=== PATIENT | female | born 1990 | race African-American/Black ===

== ENCOUNTER 2024-04-09 06:22 | Day surgery (SDC) | payer MEDICARE, SELFPAY ==
[2024-04-09] VITALS (16 sets, daily range): BP systolic 111–150; BP diastolic 65–98; PULSE 66–101; RESP 16; TEMP 36.1–36.9; O2SAT 95–100; BMI 30.9
--- OUTSIDE RECORDS SUMMARY | 2024-04-09 06:26 | XMS_ITS | Encounter Summary ---
Author Organization [facility] Address [address] [place] [address]. 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 Last Pap smear by patient report last year Allergy List reviewed: Current Immunizations reviewed: Up to date Medication list reviewed with patient and was up to date. PCS please remember to complete SMOKING assessment. Vital Signs Recorded by yessenia on 21 Jun 2007 01:20 PM BP:112/73, LUE, Sitting, HR: 88 b/min, Temp: 98.0 F, Oral, Height: 61 in, Weight: 140 lb, BMI: 26.5 kg/m2. Allergies No Known Drug Allergy. Smoking Assessment Refusing treatment. No secondhand cigarette smoke exposure. Tobacco use. Education: intervention and counseling on cessation of tobacco use Current Meds Metronidazole 500 MG Tablet;TAKE 1 TABLET TWICE DAILY; Rx Metronidazole 500 MG Tablet;1 TABS PO bid; Rx. Active Problems Acute Gonorrhea (098.0) Control Method. HPI Ms. Iniguez is an 17 year old woman seen today for a follow up pap smear and because she thinks she has bacterial vaginosis. In September 2006 she had an abnormal pap smear, was positive for HPV and had a colposcopsy that demonstrated KATHLEEN. Ms. Iniguez is experiencing vaginal discomfort and a smell white discharge. She look her symptoms up online and they were consistent with bacterial vaginosis. She has had this in the past and it has been treated successfully with metronidazole. Ms. Iniguez is sexually active and has had multiple sexual partners. She uses condoms but is not currently using any control. She has tried oral contraceptives, the patch and depo- none of which worked for her. She is interested in what other control methods are available. Ms. Iniguez also smokes and drinks socially and uses marijuana. She has graduated from high school, is currently unemployed and lives at home with her parents. She is interested in going back to schoolfor nursing or to do hair. She has no children and reports no abusive relationships in her life or unsafe living environment. Physical Exam Vital signs reviewed and recorded above. In general this is a young female in no acute distress. CV: S1 and S2, no murmur. Lungs are clear to auscultation in all galeas. Abdomen is soft, nontender and nondistended. Examination of the external genitalia shows no lesions. Vaginal vault also without lesion or mass. Cervix appears normal. There is no cervical motion tenderness. There is no adnexal mass palpated. Dictated by Mikhail Paez M.D.; ; ; ; ln. A and P A/P: #1. Repeat pap based on abnormal pap one year prior with colposcopy. Results pending. #2. Based on clinical picture and discharge, suspected bacterial vaginosis. The patient will be treated with Metronidazole 500 mg p.o. b.i.d. x seven days. #3. control. The patient was educated as to the Nuva Ring and would like to give this a try. A prescription was given. Dictated by Mikhail Paez M.D.; ; ; ; sk. Attending Note I saw and evaluated the patient. Discussed with the resident and agree with the resident's findingsand plan. Supervising Physician: Dr. Dockery. Signature Signed By: Mikhail Paez M.D.,Resident; 07/24/2007 10:57 PM WEIGHT AND BALANCE CONTROL AGENT. Signed By: BRINDA REBOLLEDO M.D.; 07/30/2007 4:19 PM WEIGHT AND BALANCE CONTROL AGENT. documented in this encounter Plan of Treatment Not on file documented as of this encounter Visit Diagnoses Not on filedocumented in this encounter Care Teams Swatch Cutter Relationship Specialty Start Date End Date No Ref-Primary, Physician PCP - General 01/03/24 Nehemiah Lewis DPM [address] [place] [address] Assigned Surgical Provider 01/08/24 documented as of this encounter
--- OUTSIDE RECORDS SUMMARY | 2024-04-09 06:26 | XMS_ITS | Encounter Summary ---
Author Organization [facility] Address [facility] [place] [address] Care Team Providers Care Services Host Name Role Phone No Ref-Primary, Physician Primary Care Provider Reason for Referral * Consultation (Routine) - Pending Review Specialty Diagnoses / Procedures Referred By Hilario t Referred To Contact Diagnoses Marizolatarsia Nehemiah Lewis DPM [address] [facility] [address] [address] Phone: tel: fax: Referral ID Status Reason Start Date Expiration Date V isits Requested Visits Authorized [id number] Pending Review 01/03/2024 01/02/2025 1 1 Question Answer Consult Type: Foot/Ankle Type: Per Protocol Scheduling Instructions: [facility] will call you to coordinate your care as prescribed by your provider. A insurance claims representative will call you within 2 business days to help you schedule your appointment, or you may contact the Intelligence Applications Chair Maker at: . Comments Please be aware that coverage of these services is subject to the terms and limitations of your health insurance plan. Call member services at your health plan with any benefit or coverage questions. [facility] will call you to coordinate your care as prescribed by your provider. A insurance claims representative will call you within 2 business days to help you schedule your appointment, or you may contact the [employer] Applications Chair Maker at: . Reason for Visit * Reason Comments Consult Brachymetatarsia Consult Brachymetatarsia Encounter Details Date Type Department Care Team (Late st Contact Info) Description 01/03/2024 8:00 AM CDT Office Visit [facility] [address] [place] [phone] Nehemiah Lewis DPM [address] [place], [place] [id number] Brachymetatarsia (Primary Dx) Social History Tobacco Use Types Packs/Day Years Used Date Smoking Tobacco: Never Tobacco Cessation:Counseling Given: No Alcohol Use Standard Drinks/Week Comments No 0 (1 standard drink = 0.6 oz pur e alcohol) Adolescent Education Answer Date Record ed Getting School Help Needed Not on file 01/02 Comments Unknown Sex and Gender Information Value Date Recorded Sex Assigned at Not on file 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 Gender Identity Not on file Sexual Orientation Not on file documented as of this encounter Last Filed Vital Signs Vital Sign Reading Time Taken Comments Blood Pressure - - Pulse 67 01/03/2024 8:12 AM CDT Temperature - - Respiratory Rate - - Oxygen Saturation 98% 01/03/2024 8:12 AM CDT Inhaled Oxygen Concentration - - Weight 70.8 kg (156 lb) 01/03/2024 8:12 AM CDT Height 154.9 cm (5' 1) 01/03/2024 8:12 AM CDT Body Mass Index 29.48 01/03/2024 8:12 AM CDT documented in this encounter Patient Instructions * Patient Instructions* Jessica Falcon - 01/03/2024 8:00 AM CDT Please make an appointment with Dr. Greg Gaines MD Locations [facility] Appointment Info [phone] documented in this encounter Progress Notes * Nehemiah Lewis, LYLEGuille - 01/03/2024 8:00 AM CDT FOOT AND ANKLE SURGERY/PODIATRY CONSULT NOTE ASSESSMENT: Brachymetatarsia bilaterally TREATMENT: I informed the patient that her best treatment option would be callus distraction and attempt to gain some length of the third and fourth metatarsals of both feet. The patient has been referred to Dr. Gaines at [facility] orthopedics for further evaluation and treatment. HPI:Erinn Iniguez presented to the clinic today complaining of bilateral foot pain. The patient indicated that her pain is located on the bottom of both feet. She has congenital brachymetatarsia. She stated as result of her short metatarsals she has a loss of balance and it creates pain due to improper weight distribution. The pain is aggravated with prolonged weightbearing and ambulation. Shedenies any trauma to her feet. She has not had any redness or swelling. She would like to have her short metatarsals treated surgically in an attempt to alleviate her symptoms. She denies any other previous treatment other than orthotics. She stated the orthotics did not give her much relief. History reviewed. No pertinent past medical history. Social History Socioeconomic History Marital status: Single Spouse name: Not on file Number of children: Not on file Years of education: Not on file Highest education level: Not on file Occupational History Not on file Tobacco Use Smoking status: Never Smokeless tobacco: Not on file Substance and Sexual Activity Alcohol use: No Drug use: Yes Comment: Drug use: quit smoking marijuana when found out . Sexual activity: Yes Partners: Male control/protection: Condom Other Topics Concern Not on file Social History Narrative Not on file Social Determinants of Health Financial Resource Strain: Declined (11/13/2023) Received from [employer] Financial Resource Strain Financial Resource Strain: 99 Food Insecurity: Declined (11/13/2023) Received from [facility] Food Insecurity Food: 99 Transportation Needs: Declined (11/13/2023) Received from [employer] Transportation Needs Transportation: 99 Physical Activity: Declined (12/01/2021) Received from [employer] Physical Activity Physical Activity: 99 Stress: Declined (12/01/2021) Received from [facility] Stress Stress: 99 Social Connections: Socially Integrated (07/02/2023) Received from [facility] Social Connections Frequency of Communication with Friends and Family: 0 Interpersonal Safety: Not on file Housing Stability: Declined (11/13/2023) Received from [employer] Housing Stability Housin No Known Allergies Current Outpatient Medications: diphenhydrAMINE (BENADRYL) 50 mg/mL injection, [DIPHENHYDRAMINE (BENADRYL) 50 MG/ML INJECTION] Infuse 0.25 mL (12.5 mg total) into a venous catheter every 6 (six) hours as needed for itching or allergies (nausea/vomiting)., Disp: 10 mL, Rfl: 5 metoclopramide (REGLAN) 10 MG tablet, [METOCLOPRAMIDE (REGLAN) 10 MG TABLET] Take 1 tablet (10 mg total) by mouth 4 (four) times a day before meals and at bedtime., Disp: 30 tablet, Rfl: 1 ondansetron (ZOFRAN-ODT) 8 MG disintegrating tablet, [ONDANSETRON (ZOFRAN-ODT) 8 MG DISINTEGRATING TABLET] Take 8 mg by mouth every 8 (eight) hours as needed for nausea., Disp: , Rfl: pyridoxine (B-6) 25 MG tablet, [PYRIDOXINE (B-6) 25 MG TABLET] Take 1 tablet (25 mg total) by mouth3 (three) times a day as needed (nausea/vomiting)., Disp: 30 tablet, Rfl: 1 Family History Problem Relation Age of Onset No Known Problems Mother No Known Problems Father No Known Problems Brother No Known Problems Maternal Aunt No Known Problems Maternal Uncle Social History Socioeconomic History Marital status: Single Spouse name: Not on file Number of children: Not on file Years of education: Not on file Highest education level: Not on file Occupational History Not on file Tobacco Use Smoking status: Never Smokeless tobacco: Not on file Substance and Sexual Activity Alcohol use: No Drug use: Yes Comment: Drug use: quit smoking marijuana when found out . Sexual activity: Yes Partners: Male control/protection: Condom Other Topics Concern Not on file Social History Narrative Not on file Social Determinants of Health Financial Resource Strain: Declined (11/13/2023) Received from [employer] Financial Resource Strain Financial Resource Strain: 99 Food Insecurity: Declined (11/13/2023) Received from [facility] Food Insecurity Food: 99 Transportation Needs: Declined (11/13/2023) Received from [facility] Transportation Needs Transportation: 99 Physical Activity: Declined (12/01/2021) Received from [facility] Physical Activity Physical Activity: 99 Stress: Declined (12/01/2021) Received from [facility] Stress Stress: 99 Social Connections: Socially Integrated (07/02/2023) Received from [facility] Social Connections Frequency of Communication with Friends and Family: 0 Interpersonal Safety: Not on file Housing Stability: Declined (11/13/2023) Received from [employer] Housing Stability Housin Review of Systems - Patient denies fever, chills, rash, wound, stiffness, limping, numbness, weakness, heart burn, blood in stool, chest pain with activity, calf pain when walking, shortness of breath with activity, chronic cough, easy bleeding/bruising, swelling of ankles, excessive thirst, fatigue, depression, anxiety. Patient admits to bilateral foot pain. OBJECTIVE: Appearance: alert, well appearing, and in no distress. Pulse 67 Ht 1.549 m (5' 1) Wt 70.8 kg (156 lb) SpO2 98% BMI 29.48 kg/m?? Body mass index is 29.48 kg/m??. General appearance: Patient is alert and fully cooperative with history & exam. No sign of distress is noted during the visit. Psychiatric: Affect is pleasant & appropriate. Patient appears motivated to improve health. Respiratory: Breathing is regular & unlabored while sitting. HEENT: Hearing is intact to spoken word. Speech is clear. No gross evidence of visual impairment that would impact ambulation. Vascular: Dorsalis pedis and posterior tibial pulses are palpable. There is pedal hair growth bilaterally. CFT < 3 sec from anterior tibial surface to distal digits bilaterally. There is no appreciable edema noted. Dermatologic: Turgor and texture are within normal limits. No coloration or temperature changes. Noprimary or secondary lesions noted. Neurologic: All epicritic and proprioceptive sensations are grossly intact bilaterally. Musculoskeletal: All active and passive ankle, subtalar, midtarsal, and 1st MPJ range of motion aregrossly intact. Manual muscle strength is bilaterally. All dorsiflexors, plantarflexors, invertors,evertors are intact bilaterally. Tenderness present to the plantar aspect both feet on palpation. No tenderness to bilateral feet or ankles with range of motion. Calf is soft/non-tender without warmth/induration Imaging: No images are attached to the encounter or orders placed in the encounter. XR Foot 3 Views Standing Bilateral Result Date: 01/03/2024 Exam performed: Bilateral feet Indication: Foot pain Report: AP, lateral, and lateral oblique viewsshow shortened third and fourth metatarsals bilaterally. There appears to have been a surgical procedure performed at the fifth metatarsal with internal screw fixation. The fixation is well-seated. All osseous structures are well aligned. Impression: Breaking metatarsal bilaterally. XR Foot 3 Views Standing Bilateral Result Date: 01/03/2024 Exam performed: Bilateral feet Indication: Foot pain Report: AP, lateral, and lateral oblique viewsshow shortened third and fourth metatarsals bilaterally. There appears to have been a surgical procedure performed at the fifth metatarsal with internal screw fixation. The fixation is well-seated. All osseous structures are well aligned. Impression: Breaking metatarsal bilaterally. Nehemiah Rivera DPM [facility] Foot & Ankle Surgery/Podiatry documented in this encounter Plan of Treatment Scheduled Referrals Name Type Priority Associated Diagnoses Orde r Schedule [facility] [employer] Referral Referral Routine Brachymetatarsia Expected: 01/03/2024 (Approximate), Expires: 01/02/2025 documented as of this encounter Visit Diagnoses Diagnosis Brachymetatarsia- Primary Other congenital deformity of feet documented in this encounter Care Teams Services Host Relationship Specialty Start Date End Date No Ref-Primary, Physician PCP - General 01/03/24 documented as of this encounter
--- OUTSIDE RECORDS SUMMARY | 2024-04-09 06:26 | XMS_ITS | Encounter Summary ---
Author Organization [facility] Address [address] [place] [address] Care Team Providers Care Realty Loan Specialist Name Role Phone No Ref-Primary, Physician Primary Care Provider Reason for Referral * Diagnostic Imaging XR (Routine) - Pending Review Specialty Diagnoses / Procedures Referred By Hilario matta Referred To Contact Radiology. Diagnoses Brachymetatarsia Procedures XR Foot 3 Views Standing Bilateral Nehemiah Lewis DPM [address] [place] [address] Phone: tel: fax: Referral ID Status Reason Start Date Expiration Date V isits Requested Visits Authorized [id number] Pending Review 12/25/2023 12/24/2024 1 1 Reason for Visit * Diagnostic Imaging XR (Routine) - Pending Review Specialty Diagnoses / Procedures Referred By Hilario matta Referred To Contact Radiology. Diagnoses Brachymetatarsia Procedures XR Foot 3 Views Standing Bilateral Nehemiah Lewis DPM [address] [facility] [address], [place] [address] Phone: tel: fax: Referral ID Status Reason Start Date Expiration Date V isits Requested Visits Authorized [id number] Pending Review 12/25/2023 12/24/2024 1 1 Encounter Details Date Type Department Care Team (Latest Contact Info) Description 01/03/2024 7:37 AM CDT - 01/03/2024 11:59 PM CDT Hospital [facility] [address] [facility] [address] [place] [address] Nehemiah Lewis DPM [address] [facility] [address] [place] [address] Brachymetatarsia Discharge Disposition: Home or Self Care Social History Tobacco Use Types Packs/Day Years Used Date Smoking Tobacco: Never Alcohol Use Standard Drinks/Week Comments No 0 (1 standard drink = 0.6 oz pur e alcohol) Adolescent Education Answer Date Record ed Getting School Help Needed Not on file 01/02 Comments Unknown Sex and Gender Information Value Date Recorded Sex Assigned at Not on file 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 10 mL 5 6 metoclopramide (REGLAN) 10 MG tabletIndications:H yperemesis gravidarum [METOCLOPRAMIDE (REGLAN) 10 MG TABLET] Take 1 tablet (10 mg total) by mouth 4 (four) times a day before meals and at bedtime. 30 tablet 1 6 ondansetron (ZOFRAN-ODT) 8 MG disintegrating tablet [ONDANSETRON (ZOFRAN-ODT) 8 MG DISINTEGRATING TABLET] Take 8 mg by mouth every 8 (eight) hours as needed for nausea. 6 pyridoxine (B-6) 25 MG tabletIndications:H yperemesis gravidarum [PYRIDOXINE (B-6) 25 MG TABLET] Take 1 tablet (25 mg total) by mouth 3 (three) times a day as needed (nausea/vomiting). 30 tablet 1 6 documented as of this encounter Plan of Treatment Not on file documented as of this encounter Procedures Procedure Name Priority Date/Time Associated Diagnosis Comments XR FOOT 3 VIEWS STANDING BILATERAL Routine 01/03/2024 8:03 AM CDT Brachymetatarsia documented in this encounter Results * XR Foot 3 Views Standing Bilateral (01/03/2024 8:03 AM CDT) Anatomical Region Laterality Modality Bilateral Digital Radiogra phy Narrative 01/03/2024 8:17 AM CDT Exam performed: Bilateral feet Indication: Foot pain Report: AP, lateral, and lateral oblique views show shortened third and fourth metatarsals bilaterally. ??There appears to have been a surgical procedure performed at the fifth metatarsal with internal screw fixation. ?? The fixation is well-seated. ??All osseous structures are well aligned. Impression: Breaking metatarsal bilaterally. Nehemiah Lewis DPM [facility] DIAGNOSTIC IMAGING ORDERA BLES Final Result documented in this encounter Visit Diagnoses Diagnosis Brachymetatarsia Other congenital deformity of feet documented in this encounter Care Teams Realty Loan Specialist Relationship Specialty Start Date End Date No Ref-Primary, Physician PCP - General 01/03/24 documented as of this encounter
--- OUTSIDE RECORDS SUMMARY | 2024-04-09 06:26 | XMS_ITS | Clinical Summary ---
Author Organization [facility] Address [address] [place] [address]. [place] [address] Care Team Providers Care Windows Desktop Support Name Role Phone No Ref-Primary, Physician Primary Care Provider Nehemiah Lewis DPM Unavailable [phone] Allergies No known active allergies Medications ondansetron (ZOFRAN-ODT) 8 MG disintegrating tablet [ONDANSETRON (ZOFRAN-ODT) 8 MG DISINTEGRATING TABLET] Take 8 mg by mouth every 8 (eight) hours as needed for nausea. 08/01/19 16 Active diphenhydrAMINE (BENADRYL) 50 mg/mL injectionIndicatio ns:Hyperemesis gravidarum [DIPHENHYDRAMINE (BENADRYL) 50 MG/ML INJECTION] Infuse 0.25 mL (12.5 mg total) into a venous catheter every 6 (six) hours as needed for itching or allergies (nausea/vomiting) . 10 mL 5 08/03/19 16 Active metoclopramide (REGLAN) 10 MG tabletIndications: Hyperemesis gravidarum [METOCLOPRAMIDE (REGLAN) 10 MG TABLET] Take 1 tablet (10 mg total) by mouth 4 (four) times a day before meals and at bedtime. 30 tablet 1 08/03/19 16 Active pyridoxine (B-6) 25 MG tabletIndications: Hyperemesis gravidarum [PYRIDOXINE (B-6) 25 MG TABLET] Take 1 tablet (25 mg total) by mouth 3 (three) times a day as needed (nausea/vomiting) . 30 tablet 1 08/03/19 16 Active Active Problems Problem Noted Date Diagnosed Date Hyperemesis gravidarum 06/23/2015 Hyperemesis 06/22/2015 and not yet delivered in first trimeste r 06/22/2015 Family History Medical History Relation Comments No Known Problems Brother 1 No Known Problems Father No Known Problems Maternal Aunt 1 No Known Problems Maternal Uncle 1 No Known Problems Mother Relation Status Comments Brother 1 Brother 2 Alive Father Alive Maternal Aunt 1 Maternal Aunt 2 Alive Maternal Uncle 1 Maternal Uncle 2 Alive Mother Alive Social History Tobacco Use Types Packs/Day Years [...] on file 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 Gender Identity Not on file Sexual Orientation Not on file Last Filed Vital Signs Vital Sign Reading [...] Mass Index 29.48 01/03/2024 8:12 AM CDT Plan of Treatment Health Maintenance Due Date Last Done Comments ADVANCE CARE PLANNING 1989 ANNUAL REVIEW OF HM ORDERS 1989 GLUCOSE 1989 HIV SCREENING 02/13/2004 HEPATITIS C SCREENING 2007 YEARLY PREVENTIVE VISIT 10/01/2012 10/02/19 12, 04/06/2009 PHQ-2 (once per calendar year) 2023 COVID-19 Vaccine (2 - 2023-2 5 season) 2024 10/26/2021 INFLUENZA VACCINE (#1) 2024 03/13/2016 PAP 10/13/2024 10/13/2021 DTAP/TDAP/TD IMMUNIZATION (3 - Td or Tdap) 11/15/2025 11/16/2015, 09/12/2005 RSV VACCINE (1 - 1-dose 75+ series) 02/13/2064 HEPATITIS B IMMUNIZATION Completed 017, 04/12/2016, 03/15/2016 HPV IMMUNIZATION Aged Out No longer e ligible based on patient's age to complete this topic MENINGITIS IMMUNIZATION Aged Out No l onger eligible based on patient's age to complete this topic Pneumococcal Vaccine: Pediatrics (0 to 5 Years) and At-Risk Patients (6 to 64 Years) Aged Out No longer eligible b ased on patient's age to complete this topic RSV MONOCLONAL ANTIBODY Aged Out No l onger eligible based on patient's age to complete this topic Insurance [facility] Member Subscriber Plan / Payer (Ef fective 2023-Present) Name:Erinn Iniguez Relation to Subscriber:Self Name:Erinn Iniguez Payer ID:[id number] (NAIC) Group ID:[id number] Type:Medicaid Address: [place] [id number] [facility] Care Teams Windows Desktop Support Relationship Specialty Start Date End Date No Ref-Primary, Physician PCP - General 01/03/24 Nehemiah Lewis DPM [facility] [address] [place], [place] [id number] Assigned Surgical Provider 01/08/24
--- OUTSIDE RECORDS SUMMARY | 2024-04-09 06:26 | XMS_ITS | Encounter Summary ---
Author Organization [employer] Address [address] [place] [address] Care Team Providers Care Dairy Department Manager Name Role Phone No Primary/Referring, Phy Primary Care Provider Unavailable Encounter Details Date Type Department Care Team (Late st Contact Info) Description 11/23/2023 Telephone [facility] [address] [place] [address] Unassigned, Provider [address] [place] [address] Social History Tobacco Use Types Packs/Day Years Used Date Smoking Tobacco: Never Smokeless Tobacco: Never Alcohol Use Standard Drinks/Week Comments Yes 0 (1 standard drink = 0.6 oz pur e alcohol) occassionally Sex and Gender Information Value Date Recorded Sex Assigned at Not on file Gender Identity Not on file Sexual Orientation Not on file documented as of this encounter Nursing Notes * Megan Barry RN - 11/23/2023 4:48 PM CDT Spoke to Erinn. She was upset that we would not see her since she is out of network, and since she wasn't taken to the OR does not have a global period to be seen by us. Resident Dr. Estevez did a bedside left middle finger wound repair on 11/04/23 after she cut it on alawnmower. Please see note from 11/04/23. She states in-network providers are refusing to see her because they believe she IS within a globalperiod to be treated by us. Per pt, her primary care provider has also refused to treat her for this. She does have sutures that need to be removed. Discussed that she should try to reach out to insurance and those in-network providers again to relay that she was never taken to the OR so therefore doesn't have a global period. She is frustrated that this differentiation was never communicated with her, and would like to makea complaint that we are not seeing her. A message was sent to administration to assist with this. Megan Cannon RN * Katie Beasley - 11/23/2023 4:30 PM CDT Pt called stating that she was told she was out of network and cannot be seen by us, she reached out to her ins who provided her with a list of in network providers. Pt states those providers stated she can not be seen by them and needs to follow with [facility]. [place] spoke with nurses who confirmed pt is out of network and cannot be seen. Pt was transferred documented in this encounter Plan of Treatment Not on file documented as of this encounter Visit Diagnoses Not on filedocumented in this encounter Care Teams Dairy Department Manager Relationship Specialty Start Date End Date No Primary/Referring, Giacomoy PCP - General 11/16/17 documented as of this encounter
--- OUTSIDE RECORDS SUMMARY | 2024-04-09 06:26 | XMS_ITS | Referral Summary ---
Author Organization [facility] Address [address] [place] [address]. 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
--- OUTSIDE RECORDS SUMMARY | 2024-04-09 06:26 | XMS_ITS | Encounter Summary ---
Author Organization [facility] Address [address] [place] [address] Care Team Providers Care Critical Power Technician Name Role Phone Unavailable Primary Care Provider Unavailabl e Reason for Referral * Diagnostic Imaging XR (Routine) - Pending Review Specialty Diagnoses / Procedures Referred By Hilario matta Referred To Contact Radiology. Diagnoses Brachymetatarsia Procedures XR Foot 3 Views Standing Bilateral Nehemiah Lewis DPM [address] [facility] [address] [place] [address] Phone: tel: fax: Referral ID Status Reason Start Date Expiration Date V isits Requested Visits Authorized [id number] Pending Review 12/25/2023 12/24/2024 1 1 Reason for Visit * Reason Onset Date Comments Appointment 12/25/2023 Encounter Details Date Type Department Care Team (Late st Contact Info) Description 12/25/2023 Telephone GENERIC EXTERNAL DATA DEPARTMENT Provider, Generic External Data Appointment Social History Tobacco Use Types Packs/Day Years Used Date Smoking Tobacco: Never Alcohol Use Standard Drinks/Week Comments No 0 (1 standard drink = 0.6 oz pur e alcohol) Adolescent Education Answer Date Record ed Getting School Help Needed Not on file 01/02 Comments Unknown Sex and Gender Information Value Date Recorded Sex Assigned at Not on file 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 [phone] * Telephone Encounter - Poly Corea - 12/27/2023 9:59 AM CDT LMTCB#2 to schedule. [phone] * Telephone Encounter - Poly Corea - 12/25/2023 2:22 PM CDT LMTCB to schedule XR & consult with Dr. Lewis. 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 Per Dr. Lewis - would like x-ray prior to appt. Orders are in. * Telephone Encounter - Nadine Thomas - 12/25/2023 1:25 PM CDT Question regarding specialist protocol Please follow protocols- only utilize this documentation forquestions or concerns that are not clear in the protocol. Contact clinic directly to clarify question(s) via phone or YouHelp message. 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 Is there a referral for the requested specialist/specialty? 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
--- OUTSIDE RECORDS SUMMARY | 2024-04-09 06:26 | XMS_ITS | Clinical Summary ---
Author Organization [facility] Address [address] [place] [address] Care Team Providers Care Graphic User Interface Designer Name Role Phone No Primary/Referring, Phy Primary Care Provider Unavailable Source Comments You are receiving this document as you are listed as the primary care provider,follow-up provider, or the patient has been referred to you for consultation.This is in compliance with the Medicare and[facility] EHR Incentive Program,which states Providers who transition their patient to another setting of careor provider of care or refers their patient to another provider of care shouldprovide summary care record for each transition of care or referral. [facility] Allergies No known active allergies Medications Medication Sig Dispensed Refills Start Date End Date Status ondansetron (ZOFRAN-ODT) 4 MG disintegrating tablet Take 1 Tab by mouth every 8 hours as needed for Nausea. 10 Tab 11/16/2017 Active Additional Information Patient not taking.Reported on 05/10/2021 ciclopirox (PENLAC) 8 % solution Apply 1 Application topically daily. 05/24/2020 Active ammonium lactate (AMLACTIN) 12 % cream Apply 1 Application topically daily. 05/24/2020 Active oxyCODONE (ROXICODONE) 5 MG immediate release tablet Take 1 Tablet (5 mg) by mouth every 6 hours as needed for Pain. 8 Tablet 11/04/2023 Active Active Problems Problem Noted Date Diagnosed Date ASCUS of cervix with negative high risk HPV 04/0 06/2021 Overview (06/27/2022): 09/2021 ASCUS/HPV negative. PLAN: Pap/HPV due 09/2024 Cyst of Bartholin's gland 12/24/2017 Pre-eclampsia in third trimester 12/24/2017 Anemia, 02/17/2016 Hyperemesis gravidarum 06/23/2015 Hyperemesis 06/22/2015 and not yet delivered in first trimeste r 06/22/2015 Migraine 05/24/2009 Social History Tobacco Use Types Packs/Day Years [...] Sign Reading Time Taken Comments Blood Pressure 128/76 11/04/2023 9:00 PM CDT Pulse 77 11/04/2023 9:00 PM CDT Temperature 36.7 ??C (98.1 ??F) 11/04/2023 5:54 PM CD T Respiratory Rate 16 11/04/2023 8:38 PM CDT Oxygen Saturation 98% 11/04/2023 9:00 PM CDT Inhaled Oxygen Concentration - - Weight 62.1 kg (137 lb) 05/10/2021 12:54 PM SURVEYING TECHNICIAN Height 154.9 cm (5' 1) 05/10/2021 12:54 PM SURVEYING TECHNICIAN Body Mass Index 25.89 05/10/2021 12:54 PM SURVEYING TECHNICIAN Plan of Treatment Health Maintenance Due Date Last Done Comments Cervical Cancer Screening Due 1989 Hep C Screening (Preventive Services) 1989 Adult Preventive Visit 2007 HepB (1) 02/13/2008 COVID-19 Vaccine (1 - 2023-2 5 season) 2024 Influenza (#1) 2024 03/13/2016 DTaP/Tdap/Td (3 - Tdap) 11/15/2025 11/16/19 16, 09/12/2005 Zoster/Shingles (1 of 2) 2039 HIV Screening (Preventive Services) Completed 07/01/2015 HPV Vaccine Aged Out No longer eligi ble based on patient's age to complete this topic HepA Aged Out No longer eligi ble based on patient's age to complete this topic Hib Aged Out No longer eligi ble based on patient's age to complete this topic IPV (Polio) Aged Out No longer eligi ble based on patient's age to complete this topic RSV Aged Out No longer eligi ble based on patient's age to complete this topic MCV4 Aged Out No longer eligi ble based on patient's age to complete this topic Pneumococcal Aged Out No longer eligi ble based on patient's age to complete this topic Care Teams Graphic User Interface Designer Relationship Specialty Start Date End Date No Primary/Referring, Phy PCP - General 11/16/17
--- OUTSIDE RECORDS SUMMARY | 2024-04-09 06:26 | XMS_ITS | Patient Health Record ---
Author Organization [facility] Address [address] [place] [address] Care Team Providers Care Solutions Sales Consultant Name Role Phone Da Carter [phone] ALLERGIES Allergen (clinical drug ingredient) Drug/Non Drug Allergy documented on EMR Reaction Allergy Type Onset Date Status Allergies Reconciled (uncoded) Unknown Allergy Active REASON FOR REFERRAL No Information MEDICATIONS Medication SIG (Take, Route, Frequency, Duration) Notes Start Date End Date Status Clotrimazole 1 % 1 (one) External *please review for potential _update for e-prescription and drug interaction check* 07/17/2017 Active SOCIAL HISTORY Sex Assigned At : Social History Observation Description Sex Assigned At Unknown PROBLEMS Problem Type ICD Code Onset Dates Problem Status W/U Status Risk SNOMED Code Notes Problem Tinea pedis (B35.3) Active confirmed Tinea pedis (8250552) Problem 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 Metatarsalgia o f right foot (299694306714371 ) PLAN OF TREATMENT No Information Insurance Providers Payer Name Payer Address Payer Phone Subscriber Number Group Number Insured Name Patient Relationship to Insured Coverage Start Date Coverage End Date [facility] Community Plan [address] [place] [address] [id number] [facility] Self - patient is the insured [place] [employer] [address] [address] [place] [address] [id number] Erinn Iniguez Self - patient is the insured D [facility] [address] [place] [address] [id number] [facility] Self - patient is the insured
--- OUTSIDE RECORDS SUMMARY | 2024-04-09 06:26 | XMS_ITS | Encounter Summary ---
Author Organization [facility] Address [address] [place] [address] Care Team Providers Care Nurse Supervisor Name Role Phone Unavailable Primary Care Provider Unavailabl e Encounter Details Date Type Department Care Team (Latest Contact Info) Description 03/31/2024 Travel Social History Tobacco Use Types Packs/Day Years Used Date Smoking Tobacco: Never Passive Smoke Exposure: Never Smokeless Tobacco: Never Alcohol Use Standard Drinks/Week Comments Yes 7 (1 standard drink = 0.6 oz pur e alcohol) Social Connections Answer Date Recorded Connectedness 0 12/01/2021 Financial Resource Strain Answer Date R ecorded Financial Resource Strain 99 2023 Stress Answer Date Recorded Stress 0 12/01/2021 Physical Activity Answer Date Recorded Physical Activity 0 12/01/2021 Food Insecurity Answer Date Recorded Food 99 03/31/2024 Transportation Needs Answer Date Record ed Transportation 99 03/31/2024 Housing Stability Answer Date Recorded Housing 99 03/31/2024 Safety and Environment Answer Date Felix rded Safety 0 12/01/2021 Utilities Answer Date Recorded Utilities 0 12/01/2021 Employment Answer Date Recorded Stress 0 12/01/2021 Sex and Gender Information Value Date Recorded Sex Assigned at Female 10/28/2021 7:27 AM PDT Gender Identity Female 10/28/2021 7:27 AM PDT Sexual Orientation Straight 10/28/2021 7: 27 AM PDT COVID-19 Exposure Response Date Recorded In the last 10 days, have yo u been in contact with someone who was confirmed or suspected to have Coronavirus/COVID-19? No / Unsure 03/31/2024 3:40 PM CDT documented as of this encounter Plan of Treatment Not on file documented as of this encounter Visit Diagnoses Not on filedocumented in this encounter Additional Health Concerns Assessment Noted Time PHQ-9 Depression Total Score: 7 10/14/20 24 4:10 PM PDT documented as of this encounter
--- OUTSIDE RECORDS SUMMARY | 2024-04-09 06:26 | XMS_ITS | Encounter Summary ---
Author Organization [facility] Address [address] [place] [address]. 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
--- OUTSIDE RECORDS SUMMARY | 2024-04-09 06:26 | XMS_ITS | Clinical Summary ---
Author Organization [facility] Address [address] [place] [address] Care Team Providers Care Geometry Teacher Name Role Phone Unavailable Primary Care Provider Unavailabl e Source Comments PLEASE NOTE, if this patient is a minor, it may be UNLAWFUL to discuss sensitive information that is contained in these records (such as FAMILY PLANNING, MENTAL HEALTH or SUBSTANCE ABUSE) with the minor patient's parent or other person without the patient's specific authorization.[facility] Allergies No known active allergies Medications Medication Sig Dispensed Refills Start Date End Date Status cholecalciferol, vitamin D3, (VITAMIN D3) 1,250 mcg (50,000 unit) capsuleIndicatio ns:Vitamin D deficiency Take 1 Capsule by mouth once a week 8 Capsule 10/31/2021 Active ammonium lactate 12 % cream Apply topically to affected area(s) 05/24/2020 03/31/2024 Discontinued( Patient Stopped Taking) oxyCODONE (ROXICODONE) 5 mg tablet Take 5 mg by mouth every 6 (six) hours as needed for pain 11/04/2023 03/31/2024 Discontinued ( Patient Stopped Taking) oxyCODONE-acetam inophen (PERCOCET) 5-325 mg per tabletIndication s:Traumatic amputation of finger, initial encounter Take 1-2 Tablets by mouth every 6 (six) hours as needed for pain 40 Tablet 11/13/2023 03/31/2024 Discontinued( Patient Stopped Taking) Active Problems Problem Noted Date Diagnosed Date ASCUS of cervix with negative high risk HPV 06/2021 Overview (03/25/2024): 09/2021 ASCUS/HPV negative. PLAN: Pap/HPV due 09/2024 Migraine 05/24/2009 Resolved Problems Problem Noted Date Diagnosed Date Resolved Date Cyst of Bartholin's gland 12/24/2017 Pre-eclampsia in third trimester 12/24/2017 03/26/2024 Anemia, 02/17/2016 Hyperemesis gravidarum 06/23/201503/26 and not yet deliver ed in first trimester 06/22/2015 03/26/2024 Encounters Date Type Department Care Team Description 03/31/2024 3:40 PM CDT Office Visit [facility] [id number] [place] [phone] Modesto Johnson MD Preop examination (Primary Dx); Brachymetatarsia 03/31/2024 Travel from Last 3 Months Immunizations Name Administration Dates Next Due Flu, Preservative Free 03/13/2016 Hep B, Adult/Adol (ENERGIX/RECOMBIVAX) 7,04/12/2016,03/15/2016 TDAP 11/16/2015 Td(adult),2 Lf tetanus toxoi d,preservative free 09/12/2005 Family History Medical History Relation Name Comments No Known Problems Brother 1 No Known Problems Brother 2 No Known Problems Brother 3 No Known Problems Father Prostate Cancer Maternal Grandfather Breast cancer Maternal Grandmother Pituitary Tumor Mother Relation Name Status Comments Brother 1 Alive Brother 2 Alive Brother 3 Alive Father Alive Maternal Grandfather Maternal Grandmother Mother Alive Social History Tobacco Use Types Packs/Day Years Used Date Smoking Tobacco: Never Passive Smoke Exposure: Never Smokeless Tobacco: Never Tobacco Cessation:Counseling Given: Not Answered Alcohol Use Standard Drinks/Week Comments Yes 7 [...] No / Unsure 03/31/2024 3:40 PM CDT Last Filed Vital Signs Vital Sign Reading Time Taken Comments Blood Pressure 106/74 03/31/2024 3:47 PM CDT Pulse 72 03/31/2024 3:47 PM CDT Temperature 37.1 ??C (98.7 ??F) 03/31/2024 3:47 PM CD T Respiratory Rate 16 03/31/2024 3:47 PM CDT Oxygen Saturation 98% 03/31/2024 3:47 PM CDT Inhaled Oxygen Concentration - - Weight 74.4 kg (164 lb) 03/31/2024 3:47 PM CDT Height 156.8 cm (5' 1.73) 03/31/2024 3:47 PM CD T Body Mass Index 30.26 03/31/2024 3:47 PM CDT Plan of Treatment Health Maintenance Due Date Last Done Comments Diabetes Screening 1989 HPV Screening 1989 Lipid Screening 1989 Pap + HPV 1989 Cervical Cancer Screening 2010 Pap Smear 2010 Hepatitis C Screening 06/25/2024 Postpo faith from 1989 (Patient postponement) Depression Monitoring 07/01/2024 03/31/2024 , 11/13/2023, 10/28/2021 [id number] ( season) 2024 10/26/2021 Postponed from 02/17/2024 (Patient postponement) Imm-Influenza (#1) 2024 03/13/2016 Postponed from 02/17/2024 (Patient postponement) Hypertension Screening (#1) 03/31/2025 Imm-DTaP/Tdap/Td (3 - Td or Tdap) 11/15/2025 11/16/2015, 09/12/2005 HIV Screening Completed 07/01/2015 Imm-Hepatitis B Completed 10/10/2016, 04/12/2016, 03/15/2016 Tobacco Screening Discontinued 03/31/2024 Alcohol and Drug Screen Discontinued Cervical Ablation/Cold-Knife Conization Discontinued Cervical Cryotherapy Discontinued Colposcopy Discontinued Endometrial Biopsy Discontinued Excision/Leep Discontinued HPV Genotyping Discontinued Relationship Safety Screening/Counseling Discontinued Vaginal Pap Discontinued Vulvoscopy Discontinued Procedures Procedure Name Priority Date/Time Associated Diagnosis Comments REFERRAL TO ORTHOPEDICS Routine 03/03/20 2:00 AM CDT Traumatic amputation of finger, initial encounter REFERRAL SCANNED DOCUMENT 02/21/2024 2:00 AM CDT REFERRAL SCANNED DOCUMENT 01/23/2024 2:00 AM CDT from Last 3 Months Results * REFERRAL TO ORTHOPEDICS (03/03/2024 2:00 AM CDT) 03/03/2024 2:00 AM CDT Modesto Johnson MD REFERRAL * REFERRAL SCANNED DOCUMENT (02/21/2024 2:00 AM CDT) Only the most recent of2 resultswithin the time period is included. 02/21/2024 2:00 AM CDT Modesto Johnson MD SCAN REFERRAL from Last 3 Months Insurance Payer Benefit Plan / Group Subscriber ID Effective Dates Phone Address Type [facility] [id number] [address]-[place] [address] [address] [place] [address] Medicaid
--- OUTSIDE RECORDS SUMMARY | 2024-04-09 06:26 | XMS_ITS | Encounter Summary ---
Author Organization [facility] Address [address] [place] [address] Care Team Providers Care Blanket Inspector Name Role Phone Unavailable Primary Care Provider Unavailabl e Reason for Visit * Reason Comments Pre-operative Exam Encounter Details Date Type Department Care Team ([facility] st Contact Info) Description 03/31/2024 3:40 PM CDT Office Visit [facility] [address] [place] [phone] Modesto Johnson MD [address] [place] [phone] Preop examination (Primary Dx); Brachymetatarsia Social History Tobacco Use Types Packs/Day Years [...] Recorded In the last 10 days, have jocelyn alarcon been in contact with someone who was confirmed or suspected to have Coronavirus/COVID-19? No / Unsure 03/31/2024 3:40 PM CDT documented as of this encounter Last Filed [...] Mass Index 30.26 03/31/2024 3:47 PM CDT documented in this encounter Progress Notes * Modesto Johnson MD - 03/31/2024 3:50 PM CDT Pre-Operative History and Physical Name: Erinn Iniguez Date of Exam: 03/31/2024 Primary Provider: No primary care provider on file. 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 Date of Surgery: 04/09/2024 Surgical Specialty/Provider Name: [facility] Facility: [facility] Fax number: [phone]) Surgery type: Outpatient Primary Physician: Modesto Johnson MD Subjective: Erinn Iniguez is a 34 year old female who presents to clinic for preoperative evaluation prior to surgery. Review of Systems Constitutional: Negative for fever, chills, and fatigue. ENT: Negative for nasal congestion, ear pain, and sore throat. Respiratory: Negative for cough, dyspnea, and wheezing. Cardiovascular: Negative for chest pain, palpitations. Gastrointestinal: Negative for vomiting, diarrhea, and abdominal pain. Genitourinary: Negative for frequency, dysuria, and hematuria. Integument: Negative for rash and skin lesion(s). Musculoskeletal: Negative for myalgias, arthralgias, and muscle weakness. Neurological: Negative for headaches, dizziness. Psychiatric: Negative for anxiety and depression. Medications: Current Outpatient Medications Medication Sig Dispense Refill cholecalciferol, vitamin D3, (VITAMIN D3) 1,250 mcg (50,000 unit) capsule Take 1 Capsule by mouth once a week 8 Capsule 0 No current facility-administered medications for this visit. History: Past Medical History: Diagnosis Date Anemia, 02/17/2016 Cyst of Bartholin's gland 12/24/2017 Hyperemesis gravidarum 06/23/2015 Migraine without status migrainosus, not intractable Pre-eclampsia in third trimester 12/24/2017 and not yet delivered in first trimester 06/22/2015 Past Surgical History: Procedure Laterality Date BUNIONECTOMY Right 2021 NO SIGNIFICANT PAST SURGICAL HISTORY Family History Problem Relation Name Age of Onset Pituitary Tumor Mother No Known Problems Father No Known Problems Brother No Known Problems Brother No Known Problems Brother Breast cancer Maternal Grandmother Prostate Cancer Maternal Grandfather Social History Tobacco Use Smoking status: Never Passive exposure: Never Smokeless tobacco: Never Vaping Use Vaping status: Never Used Substance Use Topics Alcohol use: Yes Alcohol/week: 7.0 standard drinks of alcohol Types: 7 Glasses of wine per week Allergies/Sensitivities: No Known Allergies Objective: Vital Signs BP: 106/74 Weight: Weight: 164 lb (74.4 kg) Pulse: 72 Height: Height: 5' 1.73 (156.8 cm) Resp: 16 Body mass index is 30.26 kg/m??. SpO2: 98 % Temp: 98.7 ??F (37.1 ??C) Exam Physical Exam General Well developed, well nourished, no acute distress Eyes Pupils equal, round. Reactive to light and accommodation, EOMI, sclera non-icteric Ears TMs clear bilaterally Head Normocephalic, atraumatic Nose Patent without discharge Mouth/Throat Pharynx clear without erythema or exudate, mucous membranes moist Neck Soft and supple without lymphadenopathy or thyromegaly. Chest/Breast Non-tender to palpation Lungs Clear to auscultation, no crackles, rhonchi, or wheezes Heart Regular S1 S2, no murmurs Abdomen Soft, non-tender, non-distended, no palpable HSM or masses, + bowel sounds Genitourinary No suprapubic tenderness or CVAT is noted. Musculoskeletal Appears to have normal range of motion x 4 extremities, no joint swelling. No pedaledema. The 3rd and 4th toes on both feet are shorter than the 5th toe Lymphatic No lymphadenopathy in neck or clavicles Neuro Nonfocal exam. Motor intact to all 4 extremities; power is 5/5 throughout and symmetric; sensation is intact to touch throughout. Reflexes: 0 1 2 3 4 Biceps [] [x] [] [] [] Triceps [] [] [] [] [] Brachioradialis [] [x] [] [] [] Knee [] [x] [] [] [] Ankle [] [] [] [] [] Derm No rashes, normal turgor, color good Vascular Pulses: full and symmetric at radial and dorsalis pedis locations. Psych Pleasant, calm, cooperative, attentive, good eye contact, voice tone and tempo appropriate for circumstances. Meaningful Use & Uniform Data System Measures: Regulatory documentation not addressed. PHQ-9 Total Score (Auto Calculated): 7 (03/31/24) Depression Severity:: Mild (03/31/24) ROSA-7 Total: (!) 9 (03/31/24) Anxiety Severity:: Mild Anxiety (03/31/24) Diagnostics Prior to Visit Laboratory None Imaging None Other None Preoperative Risk Assessment: ASA Physical Status/ASA Classification: ASA1 Modified Mallampati Classification Class I Preop Tool Problem List: Patient Active Problem List Diagnosis Migraine ASCUS of cervix with negative high risk HPV Labs: None indicated Imaging: None indicated Assessment and Plan Preop examination Brachymetatarsia Patient is medically optimized for the schedule procedure. Modesto Johnson MD, 03/31/2024 3:50 PM CDT [facility] * Elmer Temple - 03/31/2024 3:40 PM CDT Erinn Iniguez 1990 who presents for preop evaluation undergoing right foot surgery Date of Surgery: 04/09/2024 [facility] Fax number: Surgery type: Outpatient Primary Physician: Modesto Johnson MD Rooming Staff Pre-Charting Note Visit Recommendations: SDOH PHQ9/ROSA CARE EVERYWHERE - FLU COVID PAP Elmer Temple, 7:11 AM CDT, 03/31/2024 documented in this encounter Plan of Treatment Not on file documented as of this encounter Visit Diagnoses Diagnosis Preop examination- Primary Preoperative examination, unspecified Brachymetatarsia Other congenital deformity of feet documented in this encounter Additional Health Concerns Assessment Noted Time PHQ-9 Depression Total Score: 7 03/31/20 24 4:10 PM PDT documented as of this encounter
[2024-04-09 06:55] LABS: Ur HCG Qualitative* Negative (Negative)
[2024-04-09] MEDS: SODIUM CHLORIDE 0.9 % (FLUSH) 10 ML SYRINGE IVF ×2 (07:09→11:38)
[2024-04-09] MEDS: 0.9 % SODIUM CHLORIDE 500 ML 500 ML 35 ML IV (07:15)
[2024-04-09] MEDS: MIDAZOLAM HCL 1 MG/ML inj IVP (07:22)
[2024-04-09] MEDS: fentaNYL 100 MCG/2 ML inj IVP (07:22)
--- NOTE | 2024-04-09 07:30 | CRLHL7_ITS ---
For Patients: As a result of the Cures Act, medical imaging exams and procedure reports are released immediately into your electronic medical record. You may view this report before your referring provider. If you have questions, please contact your health care provider. Indication: CALLUS DISTRACTION 3, 4 METATARSALS, EXTERNAL FIXATOR Technique: Fifty-two fluoroscopic images of the right foot submitted. Fluoroscopic time 140 seconds. IMPRESSION: Fluoroscopic guidance for orthopedic procedure. Dictated by Yahir Mack MD @ 04/09/2024 4:31:25 PM (Electronically Signed)
[2024-04-09] MEDS: CEFAZOLIN 2 GM INJ IVP (07:45)
--- NOTE | 2024-04-09 07:48 | SUR.PREOP ---
TIME?OUT:?0722 PT/RN/MDA?VERIFICATION?OF?SURGICAL?SITE,?PROCEDURE,?AND?CONSENT OBTAINED?PRIOR?TO?INVASIVE?PROCEDURE.
--- NOTE | 2024-04-09 08:01 | P.NB_ITS ---
Nerve Block Nerve Block Time Seen by Provider: 07:25 Date Seen: 04/09/24 Type of block requested by surgeon for post-operative analgesia: popliteal Side: right Time out performed: Yes Verification of patient name: Yes Verification of date of : Yes Site marking: site marked Name of person performing procedure: Marty Continuous monitoring Was continuous monitoring of O2 sat, B/P, compliance monitor, recorded every 15 minutes?: Yes Procedure Checklist: sterile prep, needles and gloves Ultrasound guided. Images saved: Yes Medications given in 5ml increments after negative aspiration: Marcaine %: 0.25 mL: 15 Needle gauge: 20 and Exparel mL: 5 Patient tolerated procedure well: Yes Additional comments: Needle noted adjacent to nerve Block Charges Block Charge (with Pro Fee): Sciatic Nerve Use of Ultrasound Machine for Block: Yes- US Guidance/pain block
--- NOTE | 2024-04-09 08:03 | P.NB_ITS ---
Nerve Block Nerve Block Time Seen by Provider: 07:25 Date Seen: 04/09/24 Type of block requested by surgeon for post-operative analgesia: adductor canal Side: right Time out performed: Yes Verification of patient name: Yes Verification of date of : Yes Site marking: site marked Name of person performing procedure: Marty Continuous monitoring Was continuous monitoring of O2 sat, B/P, surface grinding machine hand, recorded every 15 minutes?: Yes Procedure Checklist: sterile prep, needles and gloves Ultrasound guided. Images saved: Yes Medications given in 5ml increments after negative aspiration: Marcaine %: 0.25 mL: 15 Needle gauge: 20 and Exparel mL: 5 Patient tolerated procedure well: Yes Block Charges Block Charge (with Pro Fee): Femoral Nerve Use of Ultrasound Machine for Block: Yes- US Guidance/pain block
--- NOTE | 2024-04-09 08:03 | W.ANESCHARGE ---
Anesthesia Charges Start Date/Time Anesthesia Start Date: 04/09/24 Anesthesia Start Time: 07:35 Stop Date/Time Anesthesia Stop Date: 04/09/24 Anesthesia Stop Time: 10:46
--- NOTE | 2024-04-09 10:49 | W.ANESCHARGE ---
Anesthesia Charges Start Date/Time Anesthesia Start Date: 04/09/24 Anesthesia Start Time: 07:35 Stop Date/Time Anesthesia Stop Date: 04/09/24 Anesthesia Stop Time: 10:46
[2024-04-09] MEDS: ONDANSETRON 2 MG/ML inj 4 MG IVP (11:03)
--- NOTE | 2024-04-09 11:23 | W.PODPROC_ITS ---
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 Right 3rd Metatarsal callus distraction with external fixator application 2. Right 4th Metatarsal callus distraction with external fixator application 3. Application of posterior splint, right lower extremity Indications: Brachymetatarsia 3rd and 4th rays right foot Procedure Description: The patient was identified prior to being brought back into the operating room using their name and date of as patient identifiers. The intended surgical care plan was then reviewed in detail with the patient as well as rationale for surgery, most common risks, complications, and expected recovery course. The patient was given opportunity to ask questions, which were to the best of my ability. Patient ultimately voiced no questions or concerns and agreed to proceed forward with the surgery as planned. The patient was brought from the preoperative holding area to the operating room, and placed on the operating room table in the supine positions. At this time a time-out was performed by myself and operating room staff to identify the proper patient, site and operation to be performed. A well padded pneumatic ankle tourniquet was applied to the patient's right lower extremity. The Right extremity was then scrubbed, prepped and draped in the normal sterile fashion. Attention was then directed to the dorsal aspect of the?3rd and 4th rays of the?right foot. A longitudinal linear incision was made over the dorsal aspect of the 3rd interspace. The incision was deepened through subcutaneous tissue, taking care to retract and protect all vital neural and vascular structures. A linear incision was made over the dorsum of the 3rd metatarsal, allowing for dissection down to the periosteum. Using the appropriate technique according to the customer order clerk, two 3.0mm threaded pins were then placed percutaneously along the the proximal and two pins were then placed in the distal fragments, and an external fixator frame was applied. An osteotomy was performed at the metaphyseal/diaphyseal junction of the metatarsal using an sagittal saw. The fixator was adjusted to allow for a distraction and then compression was applied. A 0.62 K wire was then used to pin the 3rd digit into neutral alinement and across the MPJ. Intraoperative imaging radiographs confirmed appropriate placement of the external fixator and alignment of the metatarsal. Good rectus alignment of the digits was noted. Within the same incision, attention was then directed to the 4th metatarsal. Using the appropriate technique according to the customer order clerk, two 3.0mm threaded pins were then placed percutaneously along the the proximal and two pins were then placed in the distal fragments, and an external fixator frame was applied. An osteotomy was performed at the metaphyseal/diaphyseal junction of the metatarsal using an sagittal saw. The fixator was adjusted to allow for a distraction and then compression was applied. A 0.62 K wire was then used to pin the 4th digit into neutral alinement and across the MPJ. Intraoperative imaging radiographs confirmed appropriate placement of the external fixator and alignment of the metatarsal. Good rectus alignment of the digits was noted. Copious irrigation was performed and the subcutaneous tissue was closed with absorbable sutures, and the skin was closed with non-absorbable sutures. Upon release of the pneumatic tourniquet, immediate reperfusion of toes 1 through 5 was noted. A postoperative sir jeb chakraborty modified dressing consisting of xeroform, ABDs, Kerlix, 4 x 4's, and an SHERIN bandage was applied to the patient's right foot. A well padded [facility] splint was then applied keeping the pt's?ankle?in neutral.? The patient was transferred from the operating room to the post anesthesia care unit with vital signs stable and vascular status intact to the right lower extremity. The patient appeared to tolerate both the procedure and anesthesia well.? Hemostasis: ankle (120 min) Estimated blood loss (mL): 10 Implants: Gaston Coretrack external fixator x2 Specimens: none sent Disposition: same day
[2024-04-09] MEDS: METOCLOPRAMIDE HCL 5 MG/ML INJ 10 MG IVP (11:30)
== END 2024-04-09 13:30 | disposition home or self-care (01) ==
PROVIDERS: Anesthesiology; Visit Provider Podiatrist
PROC: (CPT 28485; principal; 2024-04-09 07:30)
DX: Q72.891 Other reduction defects of right lower limb (principal); M77.41 Metatarsalgia, right foot; G89.18 Other acute postprocedural pain
CPT/HCPCS: 28308 ×2; 20690 ×2; 01480; 64445; 64447; 73620; 76000; 76942; 81025; C1713; C9290; J0330; J0665; J0690; J2250; J2405; J2704; J2765; J3010; J7030

== ENCOUNTER 2024-08-01 12:13 | Outpatient (CLI) | payer BC, SELFPAY | END 2024-08-01 12:14 | disposition home or self-care (01) | LOC: NFLDREF 08-02 03:36 | PROVIDERS: Visit Provider Podiatrist | DX: B35.1 Tinea unguium (principal) | CPT/HCPCS: 84450; 84460 ==

== ENCOUNTER 2024-10-29 06:25 | Day surgery (SDC) | payer BC, SELFPAY ==
[2024-10-29] MEDS: LACTATED RINGERS 500 ML 500 ML 100 ML IV (06:30)
[2024-10-29 06:46] VITALS: BP 123/88; PULSE 81; RESP 16; TEMP 36.6; O2SAT 100; BMI 32.8
[2024-10-29 06:47] LABS: Ur HCG Qualitative* Negative (Negative)
[2024-10-29] MEDS: SODIUM CHLORIDE 0.9 % (FLUSH) 10 ML SYRINGE IVF (06:49)
[2024-10-29] MEDS: BUPIVACAINE 0.25% 30 ML INJECTION (07:40)
[2024-10-29] MEDS: CEFAZOLIN 1 GM inj IVP (07:45)
--- NOTE | 2024-10-29 08:38 | P.ANES_ITS ---
Anesthesia Charges Start Date/Time Anesthesia Start Date: 10/29/24 Anesthesia Start Time: 07:26 Stop Date/Time Anesthesia Stop Date: 10/29/24 Anesthesia Stop Time: 08:41 Coding CPT Codes CPT Codes: ANESTH LOWER LEG BONE SURG - 84036 ([id number]) P1 - NORMAL HEALTHY PATIENT, QK - LUMP INSPECTOR 2-4 CNCRNT ANES PROC, QX - PARALEGAL INSTRUCTOR SVGabo W/ MED DIRECTION
--- NOTE | 2024-10-29 08:38 | W.ANESCHARGE ---
Anesthesia Charges Start Date/Time Anesthesia Start Date: 10/29/24 Anesthesia Start Time: 07:26 Stop Date/Time Anesthesia Stop Date: 10/29/24 Anesthesia Stop Time: 08:41 Coding CPT Codes CPT Codes: ANESTH LOWER LEG BONE SURG - 82142 ([id number]) P1 - NORMAL HEALTHY PATIENT, QK - DISABILITY REPRESENTATIVE 2-4 CNCRNT ANES PROC, QX - SIGNALS ANALYST SVGabo W/ MED DIRECTION
[2024-10-29 08:40] VITALS: BP 123/72; PULSE 64; RESP 16; TEMP 36.1; O2SAT 98
[2024-10-29 08:45] VITALS: BP 125/84; PULSE 74; RESP 16; O2SAT 99
--- NOTE | 2024-10-29 08:50 | W.PODPROC_ITS ---
Date of Procedure: 10/29/24 Surgeon: Gauri Espinoza DPM Co-Surgeon: Sergio Ng DPM Pre-op Diagnosis: Retained external fixator right foot Post-op Diagnosis: Retained external fixator right foot Type of Procedure: External fixator removal right foot Procedure Description: The patient was identified prior to being brought back into the operating room using their name and date of as patient identifiers. The intended surgical care plan was then reviewed in detail with the patient as well as rationale for surgery, most common risks, complications, and expected recovery course. The patient was given opportunity to ask questions, which were to the best of my ability. Patient ultimately voiced no questions or concerns and agreed to proceed forward with the surgery as planned.The patient was brought from the preoperative holding area to the operating room, and placed on the operating room table in the supine positions. At this time a timeout was performed by myself and operating room staff to identify the proper patient, site and operation to be performed. A well padded pneumatic ankle tourniquet was applied to the patient's right lower extremity. The left extremity was then scrubbed, prepped and draped in the normal sterile fashion. A regional block/local anesthesia was administered for perioperative analgesia. The mini rail external fixator was identified overlying the 3rd and 4th metatarsals. After ensuring the area was clean and appropriately anesthetized, the external fixator, including the rail and associated pins, was carefully dismantled and removed in its entirety without complication. Following removal of the hardware, attention was turned to the pin sites. All pin tracts were evaluated revealing no signs of infection. Areas of reactive tissue and hyperkeratosis around the pin sites were sharply excised using a #15 blade down to healthy subcutaneous tissue. No signs of active infection were noted. Hemostasis was achieved with electrocautery. Skin edges were approximated, and primary closure was performed using inter rupted 3-0 nylon sutures. Upon release of the pneumatic tourniquet, immediate reperfusion of toes 1 through 5 was noted. A postoperative sir jeb chakraborty modified dressing consisting of xeroform, Kerlix, 4 x 4's, and an SHERIN bandage was applied to the patient's operative foot. The patient was transferred from the operating room to the post anesthesia care unit with vital signs stable and vascular status intact to the lower extremity. The patient appeared to tolerate both the procedure and anesthesia well.? Anesthesia: MAC (30cc of 0.25 marcaine plain ) and local Estimated blood loss (mL): 15 Provider Operated C-arm: 7 sec of intraoperative mini c fluro time Implants: none Specimens: none sent Disposition: PACU
[2024-10-29 09:00] VITALS: BP 123/88; PULSE 79; RESP 16; O2SAT 97
[2024-10-29 09:10] VITALS: BP 125/85; PULSE 72; RESP 16; O2SAT 99
--- NOTE | 2024-10-29 09:30 | P.ANES_ITS ---
Anesthesia Charges Start Date/Time Anesthesia Start Date: 10/29/24 Anesthesia Start Time: 07:26 Stop Date/Time Anesthesia Stop Date: 10/29/24 Anesthesia Stop Time: 08:41 Coding CPT Codes CPT Codes: ANESTH LOWER LEG BONE SURG - 06101 ([id number]) P1 - NORMAL HEALTHY PATIENT, QK - TAP BUILDER 2-4 CNCRNT ANES PROC, QX - STRUCTURER SVGabo W/ MED DIRECTION
--- NOTE | 2024-10-29 09:30 | W.ANESCHARGE ---
Anesthesia Charges Start Date/Time Anesthesia Start Date: 10/29/24 Anesthesia Start Time: 07:26 Stop Date/Time Anesthesia Stop Date: 10/29/24 Anesthesia Stop Time: 08:41 Coding CPT Codes CPT Codes: ANESTH LOWER LEG BONE SURG - 06258 ([id number]) P1 - NORMAL HEALTHY PATIENT, QK - FIBER WORKER 2-4 CNCRNT ANES PROC, QX - LIMOUSINE AND HEARSE UPHOLSTERER SVGabo W/ MED DIRECTION
== END 2024-10-29 09:10 | disposition home or self-care (01) ==
PROVIDERS: Anesthesiology; Visit Provider Podiatrist
PROC: (CPT 20680; principal; 2024-10-29 07:30)
DX: M77.41 Metatarsalgia, right foot (principal); Z47.2 Encounter for removal of internal fixation device
CPT/HCPCS: 20694; 01480; 73630; 76000; 81025; J0665; J0690; J1100; J2405; J2704; J3010; J7120